=== PATIENT | male | born 1975 | race Caucasian/White ===

== ENCOUNTER 2018-01-16 08:54 | Emergency (ER) | payer OTHER ==
[2018-01-16] MEDS ORDERED: METOCLOPRAMIDE 10 MG INJ IV (09:16)
[2018-01-16] MEDS: ONDANSETRON 4 MG INJ IV (09:30)
[2018-01-16] MEDS: DIPHENHYDRAMINE 50 MG INJ IV (09:30)
[2018-01-16] MEDS: SOD CHLORIDE 0.9% 1,000 ML IV (09:30)
[2018-01-16] MEDS: DEXAMETHASONE 10 MG/ML 1 ML INJ IV (09:30)
[2018-01-16] MEDS: KETOROLAC 30 MG INJ IV (09:32)
[2018-01-16] MEDS: morphine 4 MG/ML VIAL IV (10:37)
== END 2018-01-16 11:20 | disposition home or self-care (01) ==
LOC: FTE 08:54
DX: R51 Headache (principal)
CPT/HCPCS: 96374; 96375; 99284-25